=== PATIENT | male | born 1950 | race Two or more races ===

== ENCOUNTER 2019-08-09 16:03 | Inpatient (IN) | payer MEDICAID ==
[~2019-08-09] VITALS: Ht 165.1 cm; Wt 64.0 kg
--- NOTE | 2019-08-09 16:10 | NUR ---
pt bib ems # 122/als from home for gen. weakness,decrease appetite,altered mentation.hx of dementia,parkinsons,alzheimers.awaits er md evaluations/assessments.moitors on.adult female family bedside.
--- NOTE | 2019-08-09 16:15 | NUR ---
er md at bedside for evaluations/assessments.adult female family talking to er md.awaits reevaluations.
--- NOTE | 2019-08-09 16:47 | NUR ---
ON ARRIVAL EMS STAtes blood sugar check is 81.
--- NOTE | 2019-08-09 17:09 | NUR ---
PT STILL AT CT TEST AREA VIA STRETCHERCAMERON.AWAITS RTEST RESULTS,REEVALUATIONS.ADULT SISTER STAYED IN ROOM ER # [id number].
[2019-08-09 17:18] LABS: BASOPHIL % 0.5 % (0-2); PLATELET COUNT 168 x10^3mcL (130-400); RED CELL DISTRIBUTION WIDTH 14.5 % (11.5-14.5)
[2019-08-09] MEDS ORDERED: DONEPEZIL HYDRO10 M2 (17:28)
[2019-08-09] MEDS ORDERED: XANAX0.5 MG (17:28)
[2019-08-09] MEDS ORDERED: TRAZODONE50 M1 (17:28)
[2019-08-09] MEDS ORDERED: SEROQUEL50 M1 (17:29)
[2019-08-09] MEDS ORDERED: SINEMET 25-1001 TAB (17:29)
[2019-08-09] MEDS ORDERED: PRIMIDONE50 MG (17:30)
[2019-08-09 17:31] LABS: CALCIUM 8.4 mg/dL (8.5-10.1); CARBON DIOXIDE 30.4 mmol/L (21-32); CHLORIDE SERUM 106 mmol/L (98-107); CREATININE SERUM 0.5 mg/dL (0.7-1.3); GFR1 > 60 mL/min; GLUCOSE SERUM 88 mg/dL (74-106); SODIUM SERUM 142 mmol/L (136-145)
[2019-08-09 17:36] LABS: ALBUMIN 3.4 g/dL (3.4-5.0); ALKALINE PHOSPHATASE 89 U/L (46-116); ALT/SGPT 8 U/L (16-63); AST/SGOT 18 U/L (15-37); BILIRUBIN TOTAL 0.34 mg/dL (0.20-1.00); TOTAL PROTEIN, SERUM 6.8 g/dL (6.4-8.2)
--- NOTE | 2019-08-09 18:37 | NUR ---
RESTING MONITORS ON,ADULT SISTER BEDSIDE.VS SHOWN .AWAITS REEVALUATIONS.
--- NOTE | 2019-08-09 18:57 | NUR ---
ATTEMPTED TO DO IN/OUT URINE CATHETER BUT NO URINE OUTPUT.ER MD MADE AWARE.PT TOLERATED PROCEDURES WITH NO INCIDENTS.ADULT SISTER BEDSIDE.AWAITS REEVALUATIONS.
--- NOTE | 2019-08-09 19:01 | NUR ---
PT ENDORSED to/accepted by mark lopez.
[2019-08-09 19:20] LABS: UA SPECIFIC GRAVITY 1.025 (1.005-1.035); microscopic required? YES; urine erythrocyte 3+ (NEGATIVE)
[2019-08-09 20:21] LABS: AMPHETAMINE QUAL UR NONE DETECTED (See below)
--- NOTE | 2019-08-09 20:24 | NUR ---
REPORT GIVEN TO BART ON MED/SURG FOR CONTINUATION OF CARE.
[2019-08-09 20:27] LABS: T3 TOTAL 0.95 ng/mL
[2019-08-09 20:28] LABS: FREE T4 0.8 ng/dL (0.76-1.46); FREE THYROXINE INDEX 2.4 ug/dL (1.4-4.5); T4(THYROXINE) 7.8 ug/dL (4.7-13.3)
--- NOTE | 2019-08-09 20:30 | NUR ---
PATIENT JUST HAD BREATHING TREATMENT, NOW SATTING 97%. NO SOB ON 2L NC. CALL LIGHT WITHIN REACH.
--- NOTE | 2019-08-09 20:38 | NUR ---
RECEIVED PT VIA GURNEY FROM E/D, ACCOMPANIED BY TRANSPORTER AND PT'S SISTER, LADI SHAW. PT IS AWAKE, NON-VERAL, UNABLE TO FOLLOW COMMANDS, RESPONDS TO NAME. NO S/S CHEST PAIN OR DISCOMFORT AT THIS TIME. SCD IN PLACE. LUNGS DIM BILATERALLY, CHEST RISING EVENLY, 2LNC, 97%, NO ACUTE RESPIRATORY DISTRESS NOTED. PT ON ASPIRATION PRECATIONS -- PER SISTER, PT CHOKES ON PILLS AND SOME SOLID FOOD. ALSO, POOR PO INTAKE > 3 DAYS AND LOST >10 # / 1 MONTH. PT ON 16FR F/C INSTALLED 08/09/19, DRAINING PINK-TINGED URINE. GENERALIZED WEAKNESS, TOTAL CARE/BEDBOUND, BUE TREMORS R > L. PT W/ L SACRUM P/U, COVERED W/ OPTIFOAM; LALM MATTRESS FOR SKIN MANAGMENT; NOTED OLD MIDLINE STERNOTOMY SCAR. IV SITE RW 20G, CDI. UNABLE TO ORIENT PATIENT D/T ALOC, INSTEAD ORIENTED SISTER TO ROOM, BED CONTROLS, CALL LIGHT SYSTEM. SIDE RAILS UP X 2, BED IN LOW POSITION. WILL ENDORSE TO JOSETTE BRAUN.
--- NOTE | 2019-08-09 20:45 | NUR ---
RECIEVED PATIENT, NONVERBAL, UNABLE TO FOLLOW COMMANDS. PATIENT PUT ON AIR MATTRESS, HES UNABLE TO REPOSITION SELF. WILL TURN Q 2, PATIENT POSITIONED ON RIGHT SIDE, SKIN BREAKDOWN NOTED ON LEFT SACRAL AREA, ZGUARD ALREADY IN PLACE, OPTIFIAM APPLIED. HAND TREMORS NOTED, HX OF PARKINSONS. SCDS ON. IV INFUSING WITHOUT ERYTHEMA OR INFILTRATION. BED ALARM ON.
[2019-08-09 21:22] VITALS: BP 144/45
--- NOTE | 2019-08-10 00:02 | NUR ---
PATIENT REOSITIONED ON LEFT SIDE AT THIS TIME. NC AT 2L, NO SOB NOTED. SAUCEDA DRAINING BLOOD TINGED URINE. IV INFUSING WITHOUT ERYTHEMA OR INFILTRATION. BED ALARM ON.
[2019-08-10 04:59] VITALS: BP 124/76
[2019-08-10 06:31] LABS: CALCIUM 8.1 mg/dL (8.5-10.1); CARBON DIOXIDE 24.9 mmol/L (21-32); CHLORIDE SERUM 107 mmol/L (98-107); CREATININE SERUM 0.5 mg/dL (0.7-1.3); GFR1 > 60 mL/min; GLUCOSE SERUM 99 mg/dL (74-106); MAGNESIUM 1.6 mg/dL (1.8-2.4); PHOSPHOROUS 3.1 mg/dL (2.5-4.9); POTASSIUM SERUM 3.8 mmol/L (3.5-5.1); SODIUM SERUM 141 mmol/L (136-145)
--- NOTE | 2019-08-10 06:33 | NUR ---
PATIENT IS RESTING IN BED. HAND TREMORS HAVE BEEN CONSTANT. PATIENT REPOSITIONED SUPINE. SAUCEDA DRAINED 400 ML THIS SHIFT OF BLOOD TINGED URINE. IV TO RW IS INFUSING WITHOUT ERYTHEMA OR INFILTRATION. BED LOCKED AND IN LOWEST POSITION. AIR MATTRESS IN PLACE. WILL ENDORSE CARE TO DAYSHIFT NURSE.
[2019-08-10 06:36] LABS: BASOPHIL % 0.2 % (0-2); PLATELET COUNT 165 x10^3mcL (130-400)
[2019-08-10 07:03] LABS: RED CELL DISTRIBUTION WIDTH 14.7 % (11.5-14.5)
--- NOTE | 2019-08-10 08:06 | NUR ---
Recieved report from night nurse at 0730. Patient observed having tremors in hands. Patient has history of Parkinson's. Patient is awake and responsive to verbal and tactile stimuli. Avila catheter draining dark abrahan urine with sediments. IV in place on right hand NS running at 100/hr. Patient turned from left side to his right side at 0800. Arms propped with pillows.
[2019-08-10 08:59] VITALS: BP 141/46
--- NOTE | 2019-08-10 09:05 | NUR ---
Ressessed the patient at 0850. Patient appears calm. Hand tremors persistent. Doctor paged to discuss labs and possible treatments.
--- NOTE | 2019-08-10 11:05 | NUR ---
WHILST TURNING PATIENT NOTED THAT URINE APPEARS TO BE LEAKING AROUND SAUCEDA CATHETER. CATHETER STIL DRAINING WELL. SAUCEDA CATHETER CARE DONE AND ADDITIONAL 3 ML OF STERILE WATER INSERTED IN CATHETER BALLOON.
--- NOTE | 2019-08-10 12:19 | NUR ---
Consulted with Dr. Triplett and resident physicians at patient's bedside. spoke with family at length using [facility] director speech language. Treatment plan is to anticipate swallow eval by speech pathologist. Dr. Triplett requested a simple swallow eval at bedside by nurses, which we did, but it was not clear that the patient was swallowing safely so we will wait for the swallow eval by therapist. I started a magnesium piggy back of 2 g, ordered by the provider for Mag level of 1.6.
--- NOTE | 2019-08-10 12:48 | NUR ---
[facility] Puree diet, nectar thick liquids ordered. Speech therapist medications crushed and given with apple sauce with nurse supervision.
--- NOTE | 2019-08-10 13:00 | NUR ---
PT WAS SEEN FOR DYSPHAGIA. PT WAS ABLE TO SAFELY SWALLOW PUREE DIET WITH NECTAR THICK LIQUID WITHOUT S/S OF ASPIRATION. PT HAD MILD COUGH FOR THIN LIQUID. RECOMMENDATION PUREE DIET WITH NECTAR THICK LIQUID FOR ORAL GRATIFICATION DURING LUNCH AND DINNER TIME ONLY. 1:1 SUPERVISION SMALL BITES AND SIPS ONLY.
[2019-08-10 16:45] VITALS: BP 127/67
--- NOTE | 2019-08-10 18:12 | NUR ---
1530 - SEEN AND EXAMINED BY DR GARCIA. DR AWARE OF LEAKAGE OF URINE AROUND SAUCEDA CATHETER, SLIGHTLY BLOOD TINGED. LEAKAGE APPEARS TO BE LESS SINCE ADDITIONAL WATER ADDED TO BALLOON.
--- NOTE | 2019-08-10 18:13 | NUR ---
Patient was fed dinner by his sister. Patient is now resting comfortably in bed. Will endorse to night nurse.
--- NOTE | 2019-08-10 19:30 | NUR ---
RECIEVED PATIENT AT START OF SHIFT AWAKE, HAVING GENERLIZED BODY TREMORS. PATIENT IS NONVERBAL AND DOES NOT FOLLOW COMMANDS. MED-SURG. SCDS ON, AIR MATTRESS IN PLACE, LUNGS ARE DIMINISHED AT THE BASES, 95% ON RA. SAUCEDA DRAINING DAVIDE URINE. OPTIFOAM IN PLACE TO SACRUM. IV TO RW IS INFUSING WTHOUT ERYTHEMA OR INFILTRATION. BED LOCKED AND IN LOWEST POSIITON.
[2019-08-10 20:46] VITALS: BP 110/60
--- NOTE | 2019-08-10 22:00 | NUR ---
PATIENT REPOSITIONED ON LEFT SIDE. PRESSURE POINTS CUSHIONED.
--- NOTE | 2019-08-11 | NUR ---
PATIENT REPOSITIONED SUPINE. PRESSURE POINTS CUSHIONED.
--- NOTE | 2019-08-11 00:08 | NUR ---
PATIENTS EYES ARE CLOSED, BREATHS EVEN AND REGULAR. NO SIGNS OF DISTRESS. IV INFUSING WITHOUT COMPLICATION, SAUCEDA DRAINING DAVIDE URINE.
--- NOTE | 2019-08-11 02:00 | NUR ---
PATIENT REPOSITIONED ON RIGHT SIDE. PRESSURE POINTS CUSHIONED
--- NOTE | 2019-08-11 04:00 | NUR ---
PATIENT REPOSITIONED ON LEFT SIDE. PRESSURE POINTS CUSHIONED.
[2019-08-11 04:50] VITALS: BP 135/60
--- NOTE | 2019-08-11 06:13 | NUR ---
PATIENT REPOSITIONED SUPINE. SAUCEDA CARE PROVIDED. IV INFUSING WELL WITHOUT COMPLICATION. ASPIRATION PRECAUTIONS MAINTAINED THROUGHOUT SHIFT. BED LOCKED AND IN LOWETS POSITION. WILL ENDORSE CARE TO DAYSHIFT NURSE.
[2019-08-11 06:38] LABS: BASOPHIL % 0.3 % (0-2); PLATELET COUNT 174 x10^3mcL (130-400)
[2019-08-11 06:55] LABS: RED CELL DISTRIBUTION WIDTH 14.8 % (11.5-14.5)
[2019-08-11 06:57] LABS: CALCIUM 8.2 mg/dL (8.5-10.1); CARBON DIOXIDE 26.1 mmol/L (21-32); CHLORIDE SERUM 108 mmol/L (98-107); CREATININE SERUM 0.6 mg/dL (0.7-1.3); GFR1 > 60 mL/min; GLUCOSE SERUM 81 mg/dL (74-106); PHOSPHOROUS 3.5 mg/dL (2.5-4.9); POTASSIUM SERUM 3.6 mmol/L (3.5-5.1); SODIUM SERUM 143 mmol/L (136-145)
--- NOTE | 2019-08-11 07:05 | NUR ---
RECEIVED PT FROM NIGHT NURSE. PT IS LAYING DOWN IN BED WITH HOB UP RESTING WITH EYES CLOSED. RESPRIATIONS EVEN AND UNLABORED ON ROOM AIR. PT LOOKS TO BE IN NO ACUTE DISTRESS AT THIS TIME. IV SITE PATENT WITH NO SIGNS OF ERYTHEMA OR SWELLING WITH IV FLUIDS INFUSING. CALL LIGHT WITHIN REACH, BED IN LOWEST POSITION, WILL CONTINUE TO MONITOR.
[2019-08-11 08:16] VITALS: BP 134/65
--- NOTE | 2019-08-11 12:30 | NUR ---
GAVE PT A BED BATH AND GAVE NEW GOWN. PT HAD A BOWEL MOVEMENT. MADE PT COMFORTABLE IN BED. PT'S FAMILY AT BEDSIDE ASSISTING WITH EATING. EDUCATED FAMILY ON THE RISK FOR ASPIRATION AND THE NEED FOR THICKENER IN LIQUIDS, FAMILY MEMBER VERBALIZED UNDERSTANDING. WILL CONTINUE TO MONITOR.
[2019-08-11 16:47] VITALS: BP 129/60
--- NOTE | 2019-08-11 18:43 | NUR ---
PT IS LAYING DOWN IN BED WITH HOB UP. PT LOOKS TO BE IN NO ACUTE DISTRESS AT THIS TIME AND LOOKS TO BE IN NO PAIN. IV SITE PATENT WITH NO SIGNS OF ERYTHEMA OR SWELLING WITH IV FLUIDS INFUSING. RESPIRATIONS EVEN AND UNLABORED ON ROOM AIR. AIR MATTRESS IN PLACE. CALL LIGHT WITHIN REACH. WILL ENDORSE TO ONCOMING SHIFT.
--- NOTE | 2019-08-11 20:00 | NUR ---
RECEIVED PT IN BED, AWAKE AND ALERT. NON VERBAL, UNABLE TO FOLLOW COMMANDS. RESP. EVEN AND UNLABORED. ON ROOM AIR, NO ACUTE DISTRESS NOTED. NO TELE, NO SIGNS OF PAIN OR ANY DISCOMFORT NOTED AT THIS TIME. ON AIR MATTRESS, WITH GEN. WEAKNESS, TURNED AND REPOSITIONED FOR COMFORT. IVF, NS AT 100ML/HR, INTACT AND INFUSING VIA RT HAND, SITE CLEAR. SAUCEDA CATH INTACT AND DRAINING YELLOW COLOR URINE. HX OF PARKINSONS, BILAT. HANDS TREMORS NOTED. WILL CONTINUE TO MONITOR.
[2019-08-11 20:49] VITALS: BP 102/47
--- NOTE | 2019-08-11 21:40 | NUR ---
INCONT. OF SOFT MED. STOOL, CLEANED . KEPT COMFORTABLE. WILL CONTINUE TO MONITOR.
--- NOTE | 2019-08-11 23:45 | NUR ---
TURNED AND REPOSITIONED Q2HRS AND PRN. KEPT COMFORTABLE. RESTING QUIETLY, WITH EYES CLOSED, APPEARS ASLEEP, EASILY AROUSABLE. RESP. EVEN AND UNLABORED. NO ACUTE DISTRESS NOTED. WILL CONTINUE TO MONITOR.
[2019-08-12 04:31] VITALS: BP 128/85
--- NOTE | 2019-08-12 06:04 | NUR ---
AFEBRILE AND VITAL SIGNS STABLE. SLEPT WELL. NO COMPLAINTS NOTED. RESP. EVEN AND UNLABORED. NO SOB NOTED. HOB ELEVATED, NO ACUTE DISTRESS NOTED. DUE MEDS GIVEN ORDERED, HARVEY. WELL. TURNED AND REPOSITIONED Q2HRS AND PRN. SAUCEDA CATH INTACT AND DRAINING YELLOW COLOR URINE. CARE DONE. IVF INTACT AND INFUSING WELL, SITE CLEAR. WILL CONTINUE TO MONITOR.
--- NOTE | 2019-08-12 07:25 | NUR ---
RECEIVED PT FROM NIGHT NURSE. PT IS LAYING DOWN IN BED WITH HOB UP RESTING WITH EYES CLOSED. PT LOOKS TO BE IN NO ACUTE DISTRESS AT THIS TIME AND LOOKS TO BE IN NO PAIN AT THIS TIME. PT IS NONVERBAL. NODULE NOTED TO LEFT SIDE OF UPPER CHEST. IV SITE PATENT WITH NO SIGNS OF ERYTHEMA OR SWELLING WITH IV FLUIDS INFUSING. RESPIRATIONS EVEN AND UNLABORED ON 1L NC. CALL LIGHT WITHIN REACH. WILL CONTINUE TO MONITOR.
[2019-08-12 08:20] VITALS: BP 110/76
--- NOTE | 2019-08-12 10:15 | NUR ---
GAVE PT A BEDBATH, PT TOLERATED WELL. NEW GOWN PROVIDED. NODULE NOTED TO LEFT CHEST, DR. WONG. BLOOD NOTED TO TIP OF PENIS AT SAUCEDA INSERTION SITE, DR. WONG. PT MADE COMFORTABLE IN BED. WILL CONTINUE TO MONITOR.
[2019-08-12 10:49] LABS: BASOPHIL % 0.6 % (0-2); PLATELET COUNT 169 x10^3mcL (130-400)
[2019-08-12 10:50] LABS: RED CELL DISTRIBUTION WIDTH 14.8 % (11.5-14.5)
[2019-08-12 10:51] LABS: CALCIUM 8.1 mg/dL (8.5-10.1); CARBON DIOXIDE 25.9 mmol/L (21-32); CHLORIDE SERUM 108 mmol/L (98-107); CREATININE SERUM 0.5 mg/dL (0.7-1.3); GFR1 > 60 mL/min; GLUCOSE SERUM 102 mg/dL (74-106); POTASSIUM SERUM 3.4 mmol/L (3.5-5.1); SODIUM SERUM 142 mmol/L (136-145)
--- NOTE | 2019-08-12 13:42 | NUR ---
CHANGED SAUCEDA CATHETER TO CONDOM CATHETER ORDERED. PT TOLERATED WELL. EMPTIED 550ML OUT OF SAUCEDA CATHETER. NEW CATHETER BAG SET UP. PT LOOKS TO BE IN NO ACUTE DISTRESS AT THIS TIME. WILL CONTINUE TO MONITOR.
--- NOTE | 2019-08-12 15:55 | NUR ---
PT IS LAYING DOWN IN BED WITH HOB UP. PT LOOKS TO BE IN NO ACUTE DISTRESS AT THIS TIME. PT HAD BOWEL MOVEMENT. CLEANED UP PT AND MADE COMFORTABLE IN BED. OFFERED PT WATER AND DRANK WATER WITHOUT DIFFICULTY. CALL LIGHT WITHIN REACH. WILL CONTINUE TO MONITOR.
[2019-08-12 16:22] VITALS: BP 143/45
--- NOTE | 2019-08-12 18:45 | NUR ---
PT IS LAYING DOWN IN BED WITH HOB UP. PT LOOKS TO BE IN NO ACUTE DISTRESS AT THIS TIME AND LOOKS TO BE IN NO PAIN. RESPIRATIONS EVEN AND UNLABORED ON 2L NC. IV SITE PATENT WITH NO SIGNS OF ERYTHEMA OR SWELLING WITH IV FLUIDS INFUSING. CONDOM CATHETER PRESENT DRAINING CLEAR YELLOW URINE. BED IN LOWEST POSITION, CALL LIGHT WITHIN REACH, PT MADE COMFORTABLE IN BED. WILL ENDORSE TO ONCOMING SHIFT.
--- NOTE | 2019-08-12 19:15 | NUR ---
CARE ASSUMED FROM OUTGOING RN. PT RESTING COMFORTABLY IN BED. NO ACUTE DISTRESS NOTED. NONVERBAL, TREMORS NOTED TO ROMINA, HX OF PARKINSONS. EVEN AND UNLABORED RESPIRATIONS ON 2LNC. MEDSURG PT. IV PATENT AND INTACT RUNNING FLUIDS PER EMAR. CONDOM CATH IN PLACE DRAINING YELLOW URINE. BED IN LOWEST POSITION. AIR MATTRESS IN USE. SIDE RAILS UPX2. CALL LIGHT WITHIN REACH. WILL CONTINUE TO MONITOR.
[2019-08-12 19:44] VITALS: BP 120/50
--- NOTE | 2019-08-13 00:40 | NUR ---
PT ASLEEP COMFORTABLY IN BED. NO ACUTE DISTRESS NOTED. EVEN AND UNLABORED RESPIRATIONS ON RA. IV PATENT AND INTACT RUNNING FLUIDS PER EMAR. CONDOM CATH REAPPLIED, YELLOW URINE NOTED IN COLLECTION BAG. REPOSITIONED TO SUPINE POSITION. PRESSURE POINTS OFFLOADED. BED IN LOWEST POSITION. AIR MATTRESS IN USE. SIDE RAILS UXP2. CALL LIGHT WITHIN REACH WILL CONTINUE TO MONITOR.
[2019-08-13 04:59] VITALS: BP 113/47
--- NOTE | 2019-08-13 06:02 | NUR ---
BED BATH GIVEN. GOWNS CHANGED. OPTIFOAM TO RIGHT HIP AND SACRAL AREA CHANGED, CDI. NEW CONDOM CATH ATTACHED. REPOSITIONED TO SUPINE POSITION AND OFFLOADED PRESSURE POINTS. PT TOLERATED WELL. IV PATENT AND INTACT RUNNING FLUIDS PER EMAR. PT SLEPT COMFORTABLY IN INTERVALS THROUGHOUT THE SHIFT. NO ACUTE CHANGES NOTED. ALL NEEDS TENDED TO AND MET. ALL SCHEDULED MEDICATIONS GIVEN. BED IN LOWEST POSITION. AIR MATTRESS IN USE. SIDE RAILS UPX2. CALL LIGHT WITHIN REACH. WILL ENDORSE TO ONCOMING SHIFT
[2019-08-13 06:28] LABS: CALCIUM 8.3 mg/dL (8.5-10.1); CARBON DIOXIDE 29.4 mmol/L (21-32); CHLORIDE SERUM 109 mmol/L (98-107); CREATININE SERUM 0.6 mg/dL (0.7-1.3); GFR1 > 60 mL/min; GLUCOSE SERUM 84 mg/dL (74-106); MAGNESIUM 1.8 mg/dL (1.8-2.4); SODIUM SERUM 145 mmol/L (136-145)
[2019-08-13 06:32] LABS: BASOPHIL % 0.5 % (0-2); PLATELET COUNT 165 x10^3mcL (130-400)
[2019-08-13 06:47] LABS: RED CELL DISTRIBUTION WIDTH 15.1 % (11.5-14.5)
--- NOTE | 2019-08-13 07:05 | NUR ---
RECEIVED PT FROM NIGHT NURSE. PT IS LAYING DOWN IN BED WITH HOB UP. PT LOOKS TO BE IN NO ACUTE DISTRESS AND LOOKS TO BE IN NO PAIN AT THIS TIME. RESPIRATIONS EVEN AND UNLABORED ON 2LNC. IV SITE PATENT WITH NO SIGNS OF ERYTHEMA OR SWELLING WITH IV FLUIDS INFUSING. CONDOM CATHETER PRESENT DRAINING CLEAR YELLOW URINE. CALL LIGHT WITHIN REACH, BED IN LOWEST POSITION, WILL CONTINUE TO MONITOR.
[2019-08-13 07:37] VITALS: BP 105/63
--- NOTE | 2019-08-13 09:15 | NUR ---
GAVE PT A BEDBATH, PT TOLERATED WELL. CHANGED PT SHEETS AND GOWN. MADE PT COMFORTABLE IN BED, RESPOSITIONED PT, BED IN LOWEST POSITION, WILL CONITNUE TO MONITOR.
[2019-08-13 11:50] VITALS: BP 110/65
--- NOTE | 2019-08-13 15:21 | NUR ---
Initial Nutrition Assessment Dx: Dehydration, AMS PMHx: Alzheimer's, Parkinson's disease, SC PSHx: CABG Labs: Ca 8.3L, BUN 4L, Cr 0.6L, Meds: Aricept, Colace, Desyrel, Morphine, [place], Rocephin, Seroquel, Sinemet, NSIV Diet: Pureed, NTL PO intake since admission: 100% x 3 days Ht: 65" Wt: 140# (63.5 kg) BMI: 23.3 (WNL) Bed scale: 149# today during visit IBW: 136# %IBW: 103% UBW: Unknown Age: 68 y/o elderly male Food Allergies: NKFA Skin: Redness to sacral region, hip, right elbow Bandar: 9, high risk Edema: None GI: Last BM: x several today Pt. admitted with generalized weakness x 5 days associated with poor PO intake > 3 days. Reports episode of emesis prior to admission and chills. ST evaluation conducted on 08/10 with recommendations for texture/liquid thickness modifications for pureed, NTL. RD Note: Non-verbal at baseline. No family at bedside during visit. Requires assistance with meals. Tolerating diet order, texture, and liquid thickness modification without reported difficulty chewing or swallowing. Good appetite based on documented PO intake. No reported GI distress at this time. Unable to obtain weight history as pt. has history of Alzheimer's. Problem with: N/V/D/C: N Problems with: Chewing: N Swallowing: N with current diet Current appetite: Good Recent wt change: Unknown Vitamin/Supplement use: None Special diet at home: Regular Physical activity: None d/t chronic medical condition Nutrition education given (specify specific nutrition education and handout given): No diet education provided; not appropriate d/t pt. unable to comprehend diet education as pt. has history of Alzheimer's. Estimated Nutritional Needs Based on body weight (63.5 kg) Energy: 4218-2323 kcal/day (25-30 kcal/kg for geriatric needs) Protein: 64-78 g/day (1.0-1.2 g/kg for maintenance factors) Fluid: 7291-0801 mL/day (1 mL/kcal) Nutrition Diagnosis: 1. Difficulty swallowing r/t chronic medical condition AEB pt. requiring texture modified diet (pureed) and nectar thickened liquids w/meals. Intervention 1. Continue Pureed diet thickened liquids as recommended by ST evaluation. Consider ONS Ensure Enlive TID w/meals if pt. PO intake meeting <75% by following assessment. Monitor/Evaluate Goal: PO intake at least 75% of estimated needs Monitor: PO intake, Labs, GI function, skin integrity F/U in 3-5 days as moderate risk (08/16-08/18)
--- NOTE | 2019-08-13 16:55 | NUR ---
PT IS SITE LEAKING. CHANGED DRESSING AND IV CONTINUING TO LEAK WHEN FLUSHING AND INFUSING FLUIDS. WILL START NEW IV.
[2019-08-13 16:59] VITALS: BP 107/83
--- NOTE | 2019-08-13 18:25 | NUR ---
PT IS LAYING DOWN IN BED WITH HOB UP. PT LOOKS TO BE IN NO ACUTE DISTRESS AT THIS TIME AND LOOKS TO BE IN NO PAIN AT THIS TIME. NEW IV TO LEFT FOREARM IS PATENT AND INFUSING. RESPRIATIONS EVEN AND UNLABORED ON 2L NC. CONDOM CATHETER DRAINING CLEAR YELLOW URINE. CALL LIGHT WITHIN REACH. WILL ENDORSE TO ONCOMING SHIFT.
--- NOTE | 2019-08-13 19:46 | NUR ---
CARE ASSUMED FROM OUTGOING RN. PT RESTING COMFORTABLY IN BED. NO ACUTE DISTRESS NOTED. PT NONVERBAL, BEDBOUND. EVEN AND UNLABORED RESPIRATIONS ON 2LNC. MEDSURG PT. IV PATENT AND INTACT RUNNING FLUIDS PER EMAR. TREMORS NOTED TO ROMINA HX OF PARKINSONS. CONDOM CATH IN PLACE DRAINING YELLOW URINE. BED IN LOWEST POSITION. AIR MATTRESS IN USE. PRESSURE POINTS OFFLOADED. SIDE RAILS UPX2. CALL LIGHT WITHIN REACH. WILL CONTINUE TO MONITOR.
[2019-08-13 20:19] VITALS: BP 126/42
--- NOTE | 2019-08-13 23:56 | NUR ---
PT ASLEEP COMFORTABLY IN BED. REPOSITIONED TO SUPINE POSITION. PRESSURE POINTS OFFLOADED. AIR MATTRESS IN USE. EVEN AND UNLABORED RESPIRATIONS ON 2LNC. BED IN LOWEST POSITION. SIDE RAILS UPX2. CALL LIGHT WITHIN REACH. WILL CONTINUE TO MONITOR.
[2019-08-14 05:37] VITALS: BP 133/61
--- NOTE | 2019-08-14 06:47 | NUR ---
PT SLEPT COMFORTABLY IN INTERVALS THROUGHOUT THE SHIFT. ALL NEEDS TENDED TO AND MET. ALL SCHEDULED MEDICATIONS GIVEN. CONDOM CATH DISLODGED WHILE PT GIVEN BED BATH. PENILE EDEMA NOTED, LEFT CONDOM CATH OFF, WILL MAKE MD AWARE AND ENDORSE TO ONCOMING SHIFT.
[2019-08-14 07:05] LABS: CALCIUM 8.4 mg/dL (8.5-10.1); CARBON DIOXIDE 28.1 mmol/L (21-32); CHLORIDE SERUM 108 mmol/L (98-107); CREATININE SERUM 0.5 mg/dL (0.7-1.3); GFR1 > 60 mL/min; GLUCOSE SERUM 83 mg/dL (74-106); MAGNESIUM 1.8 mg/dL (1.8-2.4); POTASSIUM SERUM 3.8 mmol/L (3.5-5.1); SODIUM SERUM 144 mmol/L (136-145)
[2019-08-14 07:12] LABS: BASOPHIL % 0.3 % (0-2); PLATELET COUNT 181 x10^3mcL (130-400)
[2019-08-14 07:33] LABS: RED CELL DISTRIBUTION WIDTH 14.6 % (11.5-14.5)
[2019-08-14 08:39] VITALS: BP 112/68
--- NOTE | 2019-08-14 10:31 | NUR ---
NON VERBAL. EYES OPEN, TRACKS, MUMBLES AT TIMES. WITH RESTING HAND TREMORS. MED SURG. LUNGS DIMINISHED BILATERALLY. O2 SAT ON 2L NC 94%. BS'S ACTIVE TIMES 4. ON PUREE AND THICKENED LIQUIDS, FEEDER. IV SITE LFA CDI. ON AIR MATTRESSS, TURNING Q 2 HOURS. NO SIGNS OF DISCOMFORT OR SOB.
[2019-08-14 12:52] VITALS: BP 95/66
--- NOTE | 2019-08-14 16:00 | NUR ---
MARIELA CARDIAC CATH RN AWARE THAT PATIENT'S PENIS IS RED, AND THAT THE NANOSCIENCE TECHNICIAN LEFT THE CONDOM CATHETER OFF. I TOLD HER THAT I HAVE NOT PUT IT BACK ON, SHE SAID SHE WOULD DC THE ORDER.
[2019-08-14 16:42] VITALS: BP 121/55
--- NOTE | 2019-08-14 17:47 | NUR ---
EYES OPEN, TRACKS WITH EYES. MUMBLES RESPONSES OCCASIONALLY. ON AIR MATTRESS. RESTING TREMORS. IV SITE LFA CDI. NO SIGNS OF DISCOMFORT. NO SOB. O2 2L NC.
--- NOTE | 2019-08-14 19:57 | NUR ---
SHIFT REASSESSMENT DONE.PATIENT,OPENS EYES TO VERBAL STIMULUS,MUMBLES.O2 AT 2 LITERS,TOTAL CARE.BLE CONTRACTURES.LFA NS 100 CC/ HOUR.INCONTINENT,GOOD SKIN CARE PROVIDED,HAS AIR MATTRESS.R HIP OPTIFOAM.SCD.SKIN PENIS REDNESS,SAYS NO NO TO CONDOM CATH PER REPORT TYRA,SKIN IRRITATED.CALL LIGHT IN REACH.
[2019-08-14 21:03] VITALS: BP 134/53
--- NOTE | 2019-08-14 22:41 | NUR ---
ALL PM MEDS GIVEN,PUREED WITH THICKENEED LIQUID.SWALLOWS WELL.
--- NOTE | 2019-08-15 04:13 | NUR ---
REPOSITIONED FOR COMFORT AT Q 2 HOURS FOR COMFORT,GOOD SKIN CARE PROVIDED.
[2019-08-15 05:35] VITALS: BP 148/69
--- NOTE | 2019-08-15 06:37 | NUR ---
AM CARE DONE.PATIENT IVF INFUSING.WILL ENDORSE TO NEXT SHIFT.
[2019-08-15 07:04] LABS: BASOPHIL % 0.3 % (0-2); PLATELET COUNT 211 x10^3mcL (130-400)
[2019-08-15 07:08] LABS: CALCIUM 8.6 mg/dL (8.5-10.1); CARBON DIOXIDE 29.8 mmol/L (21-32); CHLORIDE SERUM 108 mmol/L (98-107); CREATININE SERUM 0.6 mg/dL (0.7-1.3); GFR1 > 60 mL/min; GLUCOSE SERUM 89 mg/dL (74-106); POTASSIUM SERUM 3.6 mmol/L (3.5-5.1); SODIUM SERUM 145 mmol/L (136-145)
[2019-08-15 07:14] LABS: RED CELL DISTRIBUTION WIDTH 14.8 % (11.5-14.5)
[2019-08-15 09:09] VITALS: BP 133/45
--- NOTE | 2019-08-15 09:42 | NUR ---
NON VERBAL, TRACKS WITH EYES AND WITHDRAWS TO PAIN. LUNGS DIMINISHED BILATERALLY. O2 SAT ON 2L NC 99%. BS'S ACTIVE TIMES 4. FEEDER, ON PUREE DIET WITH THICKENED LIQUIDS, TOLERATING WELL. ASPERATION PRECAUTIONS. ON AIR MATTRESS. OPTIFOAM TO RIGHT HIP CDI. IV SITE LFA CDI. INCONTINENT OF URINE AND STOOL. WITH HAND AND FOOT TREMORS.
--- NOTE | 2019-08-15 11:30 | NUR ---
SCREEN FOR LOW AVRIL SCALE: CLARIFICATION PT. ADMITTED WITH PRESSURE ULCER TO SACRALCOCCYX UNKNOW STAGE PER ADMISSION PHOTO REVIEWED, TODAY'S ASSESSMENT AREA IS RESURFACING WITH NON-BLANCHABLE WOUND BED/HEALING SCAR,IMMATURE STAGING INTEGUMENTARY: -SACRAL PRESSURE ULCER: RESURFACING WITH NON-BLANCHABLE REDNESS TO SACROCOCCYX 2X2CM, WOUND BED IS DRY NO ODOR,HEALING SCAR,IMMATURE STAGING, FERNANDO WOUND SKIN INTACT -IAD TO R/L GROINS EXTENDED TO PENIS AND SCROTUM REDNESS CLEAN AND MOIST. NO ODOR. RECOMMENDATIONS: -KEEP SKIN DRY AND CLEAN AT ALL TIMES, PLEASE CHECK Q2H AND PRN FOR INCONTINENCY OF BOWEL AND BLADDER. -APPLY HYDRAGUARD TO R/L GROINS EXTENDED TO PENIS AND SCROTUM BID AND PRN IF SOILING -CLEANSE SACRALCOCCYX WITH NS.APPLY Z GUARD,COVER WITH FOAM DRESSING QD AND PRN IF SOILING -APPLY FORM DRESSING TO HIPS Q7 DAYS AND PRN IF SOILING PREVENTION -OFFLOAD BILATERAL HEELS BY PLACING PILLOWS UNDER CALVES UNLESS OTHERWISE CONTRAINDICATED -PRESSURE REDISTRIBUTION SURFACE THERAPY -TURN AND REPOSITION Q2H, OFFLOAD SACRALCOCCYX AND BUTTOCKS BY TURNING RIGHT AND LEFT -CONTINUE TO FOLLOW RD RECOMMENDATIONS PLEASE CONTACT WOUND CARE NURSE FOR ANY QUESTION AND CHANGE OF WOUND CONDITION.
--- NOTE | 2019-08-15 11:57 | NUR ---
JESSICA RAIL BONDER NURSE CAME WITH ME TO HIS HIS SKIN. THE RIGHT HIP HAS OPTIFOAM, BUT IS THERE FOR PREVENTATIVE MEASURES. ALSO THE COCCYX AREA SKIN IS CDI, BUT HAS OPTIFOAM FOR PROTECTION. SHE ALSO SAW THE PENIS REDNESS, AND CLEANED IT OFF, AND APPLIED HYDROGUARD. HE IS INCONTINENT OF URINE, SHE IS AWARE THAT THE CONDOM CATH WAS DISCONTINUED DUE TO HIS PENIS REDNESS.
[2019-08-15] MEDS ORDERED: ROC1I IM (13:54)
[2019-08-15 17:14] VITALS: BP 128/69
--- NOTE | 2019-08-15 18:13 | NUR ---
NON VERBAL, MUMBLES AND SOMETIMES SOFTLY SAYS "YES" IN ANSWER TO QUESTIONS. NO TELE. MED SURG PATIENT. INCONTINENT OF STOOL AND URINE, HAD ONE BM TODAY. IV SITE LFA CDI. ON AIR MATTRESS, TURNING Q 2 HOURS. NO FAMILY OR VISITORS TODAY.
--- NOTE | 2019-08-15 20:38 | NUR ---
RECEIVED AWAKE IN BED WITH HOB ELEVATED AT 45 DEGREES. SKIN WARM AND DRY TOUCH. RESPIRATION EVENA ND UNLABORED. NO S;S OF ACUTE DISTRESS. IV SITE AT THE LFA INTACT AND PATNT WITH IV NS AT 100ML/HR VIA PERIPHERAL LINE TOLERATING WELL. NO S/ OF APIN/DISCOMFORT. NO FACIAL GRIMACING NOTED. WILL CONTINUE TO MONITOR.
[2019-08-15 21:18] VITALS: BP 138/61
--- NOTE | 2019-08-16 00:01 | NUR ---
EYES CLOSED, APPARENTLY ABLE TO SLEEP AT SHORT INTERVALS. TURNED AND REPOSITIONED FOR COMFORT.
[2019-08-16 05:30] VITALS: BP 110/69
--- NOTE | 2019-08-16 06:09 | NUR ---
CONTINUES ON ATB IVPB ORDERED. NO ADVERSE REACTION NOTED. KEPT CLEAN AND DRY.
--- NOTE | 2019-08-16 06:09 | NUR ---
INCONTINENT OF BLADDER FUNCTION. PARTIAL BEDBATH GIVEN BY NURSE ASSIGNED. MOISTURE BARRIER APPLIED TO PERINEAL AREA TO MAINTAINE CURRENT SKIN INTEGRITY. ALL NEEDS ATTENDED.
--- NOTE | 2019-08-16 07:30 | NUR ---
PT ENDORSE TO ME THIS MORNING. LAYING IN BED RESTING WITH EYES CLOSE/ EASILY AROUSABLE. BREATHING EVEN AND UNLABORED OR 2L NC, NO ACUTE RESP DISTRESS OR SOB NOTED, SATING 94-96%. NO SIGN OF CP OR PRESSURE. TREMORS NOTED. BOWEL SOUNDS ACTIVE IN ALL FOUR QUADS, LAST BM 08/15 PER NIGHT NURSE. INCONT. BED BOUND/ GEN WEAKNESS/ TURN Q 2 HOURS/ AIR MATTRESS, BLEE CONTRACTURES NOTED. OPTIFORM TO R HIP/ COCCYX INPLACE FOR PREVENTION. IV TO THE LFA INTACT AND PATENT/ INFUSING AT 100ML/HR, NO REDNESS OR SWELLING NOTED. 2 SIDE RAIL UP /BED IN LOW POSITION/ BY NURSING STATION. WILL CONTINUE TO MONITOR.
[2019-08-16 09:02] VITALS: BP 110/60
--- NOTE | 2019-08-16 10:12 | NUR ---
NEW IV TO THE THE RFA 20 G INTACT AND PATENT. IV TO THE LFA REMOVED DUE TO REDNESS AND DISCOMFORT/ CATHETER TIP INTACT.
[2019-08-16 17:29] VITALS: BP 110/60
--- NOTE | 2019-08-16 17:30 | NUR ---
TAKED TO PT SISTER LADI SHAW OVER THE PHONE AND CONFIRMED THAT SHE IS OK WITH PT BEING TRANSFERED OVER TO [address] WILL CONTINUE TO MONITOR.
--- NOTE | 2019-08-16 18:10 | NUR ---
REPORT GIVEN TO NENITA WRAPPER CASHIER FROM [facility].
--- NOTE | 2019-08-16 18:28 | NUR ---
RUTH ARRIVED TO [facility] PT. PT WILL BE GOING TO [facility] FOR [place]. BREATHING EVEN AND UNLABORED ON 2L NC/ TOLERATING WELL. NO SIGN OF CP OR PRESSUER/ IV TO THE RFA INTACT AND PATENT/ HEPLOCKED. PT TRANSFERED.
== END 2019-08-16 18:28 | DRG 463 ==
LOC: ED 16:03 → MU 19:43
PROVIDERS: Emergency Medicine; ADMIT Internal Medicine
DX: N39.0 Urinary tract infection, site not specified (principal); G93.41 Metabolic encephalopathy; G20 Parkinson's disease; G30.9 Alzheimer's disease, unspecified; F02.80 Dementia in other diseases classified elsewhere, unspecified severity, without behavioral disturbance, psychotic disturbance, mood disturbance, and anxiety; F32.9 Major depressive disorder, single episode, unspecified; E86.0 Dehydration; R62.7 Adult failure to thrive; Z66 Do not resuscitate; I25.2 Old myocardial infarction; Z95.1 Presence of aortocoronary bypass graft
CPT/HCPCS: 84439; 92526-GN; 92610-GN; G0378; J0696; J3475; J7030; J7060